=== PATIENT | male | born 1965 | race Caucasian/White ===

== ENCOUNTER 2017-04-10 13:04 | Emergency (ER) | payer BC, OTHER ==
[2017-04-10 13:31] VITALS: BP 152/86
[2017-04-10] MEDS ORDERED: IBUPROFEN 400 MG TABLET PO STA (14:33)
--- NOTE | 2017-04-10 14:37 | ED Physician Documentation ---
History of Present Illness - Stated complaint Stated Complaint: L KNEE PAIN - Chief complaint Chief Complaint: Ext Problem - Additonal information Additional information: hx from pt stepping into back of truck and as he swung other leg over he felt a pop in his left knee no swelling noted by pt 9but effusion in ED) knee feels unstable shifting when he walks Review of Systems Musculoskeletal: reports: Joint pain PD PAST MEDICAL HISTORY - Past Medical History Respiratory: Sleep apnea - Past Surgical History Past Surgical History: Yes HEENT: Tonsil/Adenoidectomy - Present Medications Home Medications: Ambulatory Orders Medication Instructions Recorded Confirmed Sildenafil Citrate [Viagra] 1 tab PO DAILY 04/10/17 04/10/17 Zolpidem [Ambien] 1 tab PO DAILY 04/10/17 04/10/17 - Allergies Allergies/Adverse Reactions: Allergies Allergy/AdvReac Type Severity Reaction Status Date / Time No Known Drug Allergies Allergy Verified 04/10/17 13:31 - Social History Does the pt smoke?: Yes Smoking Status: Current every day smoker Does the pt drink ETOH?: No Does the pt have substance abuse?: No - Immunizations Immunizations are current?: Yes - POLST Patient has POLST: No PD ED PE NORMAL - Vitals Vital signs reviewed: Yes - Extremities Extremities: Other (L knee small effusion, no quad or patellar tendon TTP or defect, no patella TTP, no jt line TTP, no MCL ACL TTP, lax ACL on ignacio, diffuicult to feel for pop or catch with miniscal testing due to linmited ROM, MSV intact) Results - Vitals Vitals: Vital Signs - 24 hr 04/10/17 13:30 Temperature 36.6 C Heart Rate 58 L Respiratory 16 Rate Blood Pressure 152/86 H O2 Saturation 98 Oxygen O2 Source Room air PD MEDICAL DECISION MAKING - ED course ED course: based on exam suspect ACL injury will provide brace and refer to ortho Departure - Departure Disposition: 01 Home, Self Care Clinical Impression: ACL injury tear Qualifiers: Encounter type: initial encounter Laterality: left Qualified Code(s): S83.512A - Sprain of anterior cruciate ligament of left knee, initial encounter Condition: Good Instructions: ED Knee Injury Cruciate Ligament Follow-Up: [facility] [Provider Group] Comments: The xray does not show any bony injury. Based on you exam I suspect that you have injured the ACL You may need a MRI to confirm this diagnosis I have referred you to our orthopedics team for further evaluation and care - you need to call the clinic to schedule
--- NOTE | 2017-04-10 14:38 | XRAY Report ---
EXAM: LEFT KNEE RADIOGRAPHY EXAM DATE: 04/10/2017 02:22 PM. CLINICAL HISTORY: Trauma. COMPARISON: None. TECHNIQUE: 3 views. FINDINGS: Bones: Normal. No fractures or bone lesions. Joints: Normal. No effusion. No subluxations. Soft Tissues: There is spurring of the inferior quadriceps tendon. There is mild inferior patellar sp urring. IMPRESSION: 1. No fracture or joint effusion. Chronic spurring of the patella. [facility] Referring Provider Line: [phone] SITE ID: [id number]
== END 2017-04-10 15:12 | disposition home or self-care (01) ==
LOC: ED 13:04
DX: S83.512A Sprain of anterior cruciate ligament of left knee, initial encounter (principal); X50.9XXA Other and unspecified overexertion or strenuous movements or postures, initial encounter; F17.200 Nicotine dependence, unspecified, uncomplicated
CPT/HCPCS: 73564; 99282; 99283; A9270

== ENCOUNTER 2017-04-27 11:46 | Day surgery (SDC) | payer BC, OTHER ==
[2017-04-27] MEDS ORDERED: LACTATED RINGERS 1,000 ML IV ONE (12:04)
[2017-04-27] MEDS ORDERED: MIDAZOLAM 2 MG/2 ML VIAL IVP ONE (12:29)
[2017-04-27] MEDS ORDERED: fentaNYL 100 MCG/2 ML VIAL IVP ONE (12:29)
[2017-04-27 13:04] VITALS: BP 103/64
== END 2017-04-27 11:47 | disposition home or self-care (01) ==
LOC: SDS 11:46
PROVIDERS: ATTEND Surgery
PROC: 0DJD8ZZ Inspection of Lower Intestinal Tract, Via Natural or Artificial Opening Endoscopic (ICD-10-PCS; principal; 2017-04-27 13:15)
DX: Z12.11 Encounter for screening for malignant neoplasm of colon (principal); K64.8 Other hemorrhoids; Z87.891 Personal history of nicotine dependence
CPT/HCPCS: 45378; J7120